=== PATIENT | male | born 1995 | race Caucasian/White ===

== ENCOUNTER 2017-09-07 21:57 | Emergency (ER) | payer BC ==
[2017-09-07 22:40] LABS: BASOPHILS 0.3 % (0-2); EOSINOPHILS 1.2 % (0-7); HEMATOCRIT 43.8 % (42.0-54.0); HEMOGLOBIN 15.2 g/dL (13.5-17.5); IMMATURE GRANULOCYTES 0.2 % (0-5); LYMPHOCYTES 42.5 % (15-50); MCH 32.5 pg (26.0-34.0); MCHC 34.7 g/dL (31.0-37.0); MCV 93.6 fL (80.0-100.0); MEAN PLATELET VOLUME 11.7 fL (7.4-10.4); MONOCYTES 6.2 % (2-11); NEUTROPHILS 49.6 % (40-80); PLATELET COUNT 183 10x3/uL (130-400); RBC 4.68 10x6/uL (4.20-6.10); RDW 12.6 % (11.5-14.5); WBC 8.6 10x3/uL (4.8-10.8)
[2017-09-07 22:57] LABS: ALBUMIN 3.9 g/dL (3.4-5.0); ALKALINE PHOSPHATASE 77 U/L (46-116); ALT (SGPT) 35 U/L (10-68); BILIRUBIN - TOTAL 0.22 mg/dL (0.2-1.3); CALC OSMOLALITY 280 mosm/kg (275-300); CALCIUM 8.8 mg/dL (8.5-10.1); CARBON DIOXIDE 27.1 mmol/L (21.0-32.0); CHLORIDE - SERUM 104 mmol/L (98-107); GLUCOSE 88 mg/dL (74-106); POTASSIUM - SERUM 4.3 mmol/L (3.5-5.1); PROTEIN - SERUM 7.5 g/dL (6.4-8.2); SODIUM 141 mmol/L (136-145); UREA NITROGEN 14 mg/dL (7-18); eGFR NON AFRICAN AMERICAN > 90 mL/min (90-120)
[2017-09-07 22:59] LABS: CREATINE KINASE 154 UL (21-232); TROPONIN-I < 0.017 ng/mL (0.000-0.060)
== END 2017-09-08 00:03 | disposition home or self-care (01) ==
LOC: D.ER 21:57
PROVIDERS: Nurse Practitioner Family
DX: R09.1 Pleurisy (principal); J20.9 Acute bronchitis, unspecified; F17.200 Nicotine dependence, unspecified, uncomplicated

== ENCOUNTER 2017-10-17 15:32 | Emergency (ER) | payer MEDICAID ==
[~2017-10-17] VITALS: Ht 175.3 cm; Wt 104.5 kg
[2017-10-17 15:50] VITALS: Ht 175.3 cm; Wt 104.5 kg
[2017-10-17 18:35] LABS: ALKALINE PHOSPHATASE 79 U/L (46-116); ALT (SGPT) 38 U/L (10-68); BILIRUBIN - TOTAL 0.47 mg/dL (0.2-1.3); CALC OSMOLALITY 278 mosm/kg (275-300); CALCIUM 8.9 mg/dL (8.5-10.1); CARBON DIOXIDE 28.4 mmol/L (21.0-32.0); CHLORIDE - SERUM 102 mmol/L (98-107); GLUCOSE 86 mg/dL (74-106); POTASSIUM - SERUM 3.5 mmol/L (3.5-5.1); PROTEIN - SERUM 7.7 g/dL (6.4-8.2); SODIUM 141 mmol/L (136-145); UREA NITROGEN 11 mg/dL (7-18); eGFR NON AFRICAN AMERICAN > 90 mL/min (90-120)
[2017-10-17 18:47] LABS: CKMB 0.5 U/L (0.0-3.6); CREATINE KINASE 127 UL (21-232); TROPONIN-I < 0.017 ng/mL (0.000-0.060)
[2017-10-17 18:53] LABS: BASOPHILS 0.5 % (0-2); HEMATOCRIT 46.2 % (42.0-54.0); HEMOGLOBIN 15.9 g/dL (13.5-17.5); IMMATURE GRANULOCYTES 0.1 % (0-5); LYMPHOCYTES 37.9 % (15-50); MCH 32.1 pg (26.0-34.0); MCHC 34.4 g/dL (31.0-37.0); MCV 93.1 fL (80.0-100.0); MEAN PLATELET VOLUME 11.8 fL (7.4-10.4); MONOCYTES 6.2 % (2-11); NEUTROPHILS 54.3 % (40-80); PLATELET COUNT 180 10x3/uL (130-400); RBC 4.96 10x6/uL (4.20-6.10); RDW 12.3 % (11.5-14.5); WBC 7.9 10x3/uL (4.8-10.8)
[2017-10-17 20:19] LABS: APPEARANCE CLEAR (CLEAR); COLOR YELLOW (YELLOW)
[2017-10-17 20:20] LABS: BILIRUBIN NEGATIVE (NEGATIVE); GLUCOSE NEGATIVE (NEGATIVE); KETONE NEGATIVE (NEGATIVE); NITRITE NEGATIVE (NEGATIVE); PROTEIN NEGATIVE (NEGATIVE); UROBILINOGEN NORMAL (NORMAL)
[2017-10-17] MEDS ORDERED: VISTARIL25 MG PO (20:46)
[2017-10-17 22:04] VITALS: BP 123/76
== END 2017-10-17 21:15 | disposition home or self-care (01) ==
LOC: D.ER 15:32
PROVIDERS: Family Medicine
DX: T67.5XXA Heat exhaustion, unspecified, initial encounter (principal); X58.XXXA Exposure to other specified factors, initial encounter; Y93.89 Activity, other specified; Y92.89 Other specified places as the place of occurrence of the external cause; J45.909 Unspecified asthma, uncomplicated; F17.200 Nicotine dependence, unspecified, uncomplicated

== ENCOUNTER 2017-12-28 11:38 | Emergency (ER) | payer MEDICAID ==
[~2017-12-28] VITALS: Ht 175.3 cm; Wt 109.1 kg
[~2017-12-28 11:38] MED LIST: VISTARIL25 MG PO
[2017-12-28 11:43] VITALS: Ht 175.3 cm; Wt 109.1 kg
[2017-12-28 12:09] LABS: BASOPHILS 0.2 % (0-2); EOSINOPHILS 0.6 % (0-7); HEMATOCRIT 47.7 % (42.0-54.0); HEMOGLOBIN 16.6 g/dL (13.5-17.5); IMMATURE GRANULOCYTES 0.2 % (0-5); LYMPHOCYTES 18.1 % (15-50); MCH 32.3 pg (26.0-34.0); MCHC 34.8 g/dL (31.0-37.0); MCV 92.8 fL (80.0-100.0); MEAN PLATELET VOLUME 12.2 fL (7.4-10.4); MONOCYTES 5.6 % (2-11); NEUTROPHILS 75.3 % (40-80); PLATELET COUNT 183 10x3/uL (130-400); RBC 5.14 10x6/uL (4.20-6.10); RDW 12.5 % (11.5-14.5); WBC 12.9 10x3/uL (4.8-10.8)
[2017-12-28 12:27] LABS: ALBUMIN 4.2 g/dL (3.4-5.0); ALKALINE PHOSPHATASE 78 U/L (46-116); ALT (SGPT) 31 U/L (10-68); BILIRUBIN - TOTAL 0.39 mg/dL (0.2-1.3); CALC OSMOLALITY 277 mosm/kg (275-300); CALCIUM 8.5 mg/dL (8.5-10.1); CARBON DIOXIDE 28.4 mmol/L (21.0-32.0); CHLORIDE - SERUM 104 mmol/L (98-107); CREATININE - SERUM 1.1 mg/dL (0.6-1.3); GLUCOSE 96 mg/dL (74-106); PROTEIN - SERUM 7.7 g/dL (6.4-8.2); SODIUM 140 mmol/L (136-145); UREA NITROGEN 11 mg/dL (7-18); eGFR NON AFRICAN AMERICAN 90 mL/min (90-120)
[2017-12-28] MEDS ORDERED: ZOFRAN ODT4 MG/UDTAB PO (12:29)
[2017-12-28 13:27] VITALS: BP 132/78
== END 2017-12-28 13:28 | disposition home or self-care (01) ==
LOC: D.ER 11:38
PROVIDERS: Emergency Medicine
DX: R11.10 Vomiting, unspecified (principal); R10.9 Unspecified abdominal pain; F17.200 Nicotine dependence, unspecified, uncomplicated

== ENCOUNTER 2018-05-22 10:07 | Emergency (ER) | payer MEDICAID ==
[~2018-05-22] VITALS: Ht 175.3 cm; Wt 106.8 kg
[~2018-05-22 10:07] MED LIST changes: +ZOFRAN ODT4 MG/UDTAB PO
[2018-05-22 10:17] VITALS: BP 108/59; Ht 175.3 cm; Wt 106.8 kg
== END 2018-05-22 11:52 | disposition left against medical advice (07) ==
LOC: D.ER 10:07
DX: R10.9 Unspecified abdominal pain (principal)

== ENCOUNTER 2018-05-24 11:45 | Emergency (ER) | payer MEDICAID ==
[~2018-05-24] VITALS: Ht 175.3 cm; Wt 106.8 kg
[2018-05-24 11:54] VITALS: Ht 175.3 cm; Wt 106.8 kg
[2018-05-24 12:34] LABS: BASOPHILS 0.4 % (0-2); HEMATOCRIT 46.2 % (42.0-54.0); HEMOGLOBIN 15.9 g/dL (13.5-17.5); IMMATURE GRANULOCYTES 0.3 % (0-5); MCH 32.3 pg (26.0-34.0); MCHC 34.4 g/dL (31.0-37.0); MCV 93.9 fL (80.0-100.0); MEAN PLATELET VOLUME 11.9 fL (7.4-10.4); MONOCYTES 6.3 % (2-11); PLATELET COUNT 168 10x3/uL (130-400); RBC 4.92 10x6/uL (4.20-6.10); RDW 12.4 % (11.5-14.5)
[2018-05-24 12:55] LABS: ALBUMIN 3.9 g/dL (3.4-5.0); ALKALINE PHOSPHATASE 72 U/L (46-116); ALT (SGPT) 48 U/L (10-68); BILIRUBIN - TOTAL 0.27 mg/dL (0.2-1.3); CALC OSMOLALITY 277 mosm/kg (275-300); CALCIUM 8.6 mg/dL (8.5-10.1); CARBON DIOXIDE 31.7 mmol/L (21.0-32.0); CHLORIDE - SERUM 103 mmol/L (98-107); GLUCOSE 93 mg/dL (74-106); POTASSIUM - SERUM 3.9 mmol/L (3.5-5.1); PROTEIN - SERUM 7.6 g/dL (6.4-8.2); SODIUM 139 mmol/L (136-145); UREA NITROGEN 13 mg/dL (7-18); eGFR NON AFRICAN AMERICAN > 90 mL/min (90-120)
[2018-05-24] MEDS ORDERED: EC-NAPROSYN500 MG PO (14:18)
[2018-05-24 14:36] VITALS: BP 104/72
== END 2018-05-24 14:38 | disposition home or self-care (01) ==
LOC: D.ER 11:45
PROVIDERS: Emergency Medicine
DX: G89.18 Other acute postprocedural pain (principal); Z98.890 Other specified postprocedural states

== ENCOUNTER 2018-06-26 07:05 | Day surgery (SDC) | payer MEDICAID ==
[2018-06-25 11:25] LABS: CALC OSMOLALITY 283 mosm/kg (275-300); CALCIUM 8.7 mg/dL (8.5-10.1); CARBON DIOXIDE 28.9 mmol/L (21.0-32.0); CHLORIDE - SERUM 104 mmol/L (98-107); GLUCOSE 93 mg/dL (74-106); POTASSIUM - SERUM 3.9 mmol/L (3.5-5.1); SODIUM 143 mmol/L (136-145); UREA NITROGEN 10 mg/dL (7-18); eGFR NON AFRICAN AMERICAN > 90 mL/min (90-120)
[2018-06-25 12:29] LABS: BASOPHILS 0.5 % (0-2); HEMOGLOBIN 15.5 g/dL (13.5-17.5); IMMATURE GRANULOCYTES 0.1 % (0-5); LYMPHOCYTES 40.9 % (15-50); MCH 31.9 pg (26.0-34.0); MCHC 34.4 g/dL (31.0-37.0); MCV 92.6 fL (80.0-100.0); MEAN PLATELET VOLUME 12.9 fL (7.4-10.4); MONOCYTES 7.2 % (2-11); NEUTROPHILS 50.3 % (40-80); PLATELET COUNT 168 10x3/uL (130-400); RBC 4.86 10x6/uL (4.20-6.10); RDW 12.6 % (11.5-14.5)
[~2018-06-26] VITALS: Ht 175.3 cm; Wt 107.5 kg
[~2018-06-26 07:05] MED LIST changes: +EC-NAPROSYN500 MG PO; +KLONOPIN1 MG PO
[2018-06-26 08:06] VITALS: BP 91/50; Ht 175.3 cm; Wt 107.5 kg
[2018-06-26] MEDS ORDERED: HYDROCODON-ACE1 EA10 PO (10:17)
--- NOTE | 2018-07-09 09:41 | OP ---
PATIENT NAME: CHRISTINE ROBLES MEDICAL RECORD: [id number] :89 LOCATION:[facility] ADMISSION DATE: SURGEON: LEONARDO RINALDI MD DATE OF OPERATION: 06/26/2018 PREOPERATIVE DIAGNOSIS: Mixed internal and external hemorrhoids. POSTOPERATIVE DIAGNOSIS: Mixed internal and external hemorrhoids. PROCEDURE: PPH stapled hemorrhoidectomy. SURGEON: Leonardo Rinaldi MD REPORT OF PROCEDURE: The patient was placed in the jackknife prone position and the perianal region was prepped and draped in sterile fashion. An anoscope was used to do a 360-degree inspection of the patient's anus. I did not see any evidence of any fissures or fistulas. The patient did have large mixed internal and external hemorrhoids with the largest of these being on the left posterior to the lateral aspect. A PPH anoscope was then inserted and sutured down on all sides using interrupted 3-0 silks. A 2-0 Prolene was used to make a pursestring about 3 cm from the dentate line. The stapler was then inserted and a good ring of tissue was removed after the stapler was fired. The staple line was inspected and there was no sign of any bleeding. We irrigated out the wound and assured one last time, there was no sign of any bleeding and the staple line did appear to be intact. The anoscope was then removed. A piece of Gelfoam dipped in Americaine was placed into the anus and the anus was dressed appropriately. COMPLICATIONS: None. CONDITION: Stable. ANESTHESIA: General endotracheal. BLOOD LOSS: Minimal. TRANSINT:[id number] Voice Confirmation ID: [id number] DOCUMENT ID: [id number] LEONARDO RINALDI MD at 0941 CC: AYESHA OSMAN [id number] DICTATION DATE: 06/26/18 1020 PICKER / PACKER: 06/26/18 1121 [facility] 06/26/[address] [address]
== END 2018-06-26 12:45 | disposition home or self-care (01) ==
LOC: D.OPS 07:05 → D.PAN 09:00 → D.OPS 12:45
PROVIDERS: Surgery
DX: K64.8 Other hemorrhoids (principal); K64.4 Residual hemorrhoidal skin tags

== ENCOUNTER 2018-08-04 05:26 | Day surgery (SDC) | payer MEDICAID ==
[~2018-08-04] VITALS: Ht 175.3 cm; Wt 108.0 kg
--- NOTE | ~2018-08-04 | OP ---
PATIENT NAME: CHRISTINE ROBLES MEDICAL RECORD: [id number] :89 LOCATION:[facility] ADMISSION DATE: SURGEON: LEONARDO RINALDI MD DATE OF OPERATION: 08/04/2018 PREOPERATIVE DIAGNOSIS: Back sebaceous cyst times 2. POSTOPERATIVE DIAGNOSIS: Back sebaceous cyst times 2. PROCEDURE: Excision of back sebaceous cyst times 2 (3 cm and 1 cm). SURGEON: Leonardo Rinaldi MD REPORT OF PROCEDURE: The patient was placed in the right lateral decubitus position and the back was prepped and draped in sterile fashion. On the upper back just over top of the superior ridge of the scapula, there was a large firm mass about 3 cm in diameter. This had an old scar present. This scar was in oblique fashion. I went ahead and deepa out an ovoid incision and using a 15 blade, I was able to open up this ovoid incision overlying the mass. Electrocautery was used to dissect through the subcutaneous tissues and we gently came around this large mass of tissue. We did penetrate the mass couple of times. There was some spillage of sebum consistent with a sebaceous cyst. We eventually were able to get the entire sebaceous cyst out all the way down to normal appearing fatty tissue on all sides. This did not penetrate through the fascia. At the conclusion of this, we measured out the cyst and it was 3 cm in greatest diameter. The wound was inspected and any bleeding that was found was treated with electrocautery. We then went to the smaller cyst, which was just medial to this closer to the midline and this was about 1 cm in size. An ovoid incision 1 cm in length was made overlying this mass and using electrocautery, we came down through the surrounding subcutaneous tissues and completely excised this lesion. We never penetrated the lesion during this portion of the procedure. The wound was inspected and any bleeding was treated with electrocautery. We then irrigated out both wounds with peroxide and saline solution. The subcutaneous tissues were reapproximated with interrupted 3-0 Vicryl and then infused with 10 mL of 0.25% Marcaine with epinephrine. The skin incisions were both closed with subcutaneous running 5-0 Monocryl and dressed appropriately. COMPLICATIONS: None. CONDITION: Stable. ANESTHESIA: General endotracheal and local. BLOOD LOSS: Minimal. TRANSINT:[id number] Voice Confirmation ID: [id number] DOCUMENT ID: [id number] OPERATIVE REPORT [id number] CHRISTINE ROBLES CHRISTIAN MD CC: AYESHA OSMAN [id number] DICTATION DATE: 08/04/18 0857 PHYSICS DEPARTMENT CHAIR: 08/04/18 1146 [facility] 08/04/18 [facility] [address] [place] [address]
[~2018-08-04 05:26] MED LIST changes: +HYDROCODON-ACE1 EA10 PO
[2018-08-04 05:57] LABS: BASOPHILS 0.4 % (0-2); EOSINOPHILS 1.4 % (0-7); HEMATOCRIT 45.2 % (42.0-54.0); HEMOGLOBIN 15.2 g/dL (13.5-17.5); IMMATURE GRANULOCYTES 0.1 % (0-5); MCH 31.7 pg (26.0-34.0); MCHC 33.6 g/dL (31.0-37.0); MCV 94.2 fL (80.0-100.0); MONOCYTES 8.4 % (2-11); NEUTROPHILS 49.7 % (40-80); PLATELET COUNT 167 10x3/uL (130-400); RDW 12.5 % (11.5-14.5)
[2018-08-04 06:07] LABS: CALC OSMOLALITY 284 mosm/kg (275-300); CALCIUM 8.7 mg/dL (8.5-10.1); CARBON DIOXIDE 29.2 mmol/L (21.0-32.0); CHLORIDE - SERUM 105 mmol/L (98-107); GLUCOSE 94 mg/dL (74-106); SODIUM 143 mmol/L (136-145); UREA NITROGEN 12 mg/dL (7-18); eGFR NON AFRICAN AMERICAN > 90 mL/min (90-120)
[2018-08-04 06:39] VITALS: BP 107/70; Ht 175.3 cm; Wt 108.0 kg
[2018-08-04] MEDS ORDERED: HYDROCODON-ACE1 EA10 PO (08:51)
--- NOTE | 2018-08-04 10:24 | NUR ---
1018 1 NORCO 10/325MG PO FOR COMPLAINTS OF THROBBING PAIN @ INCISION, UPPER BACK. SERVED SHERBET & ICE WATER. Carol GIBBONS R.N.
--- NOTE | 2018-08-04 11:01 | NUR ---
1050 DRESSED, AWAKE & ALERT. GIVEN DISCHARGE INFORMATION PACKET INCLUDING: RX: NORCO 10/325MG, MED REC., RTC APPT., [facility] OUTPATIENT D/C INSTRUCTIONS & COMPUTER GENERATED PT EDUCATIONS: EPIDERMAL CYST D/C INSTRUCTIONS. PT VOICED UNDERSTANDING. INSTRUCTED ON FILLING ICE PACK. TO PRIVATE CAR PER WHEELCHAIRBY VOLUNTEER. HOME WITH KEV BUENO. Carol GIBBONS R.N.
== END 2018-08-04 10:50 | disposition home or self-care (01) ==
LOC: D.OPS 05:26
PROVIDERS: ATTEND Surgery
DX: L72.3 Sebaceous cyst (principal); Z01.812 Encounter for preprocedural laboratory examination

== ENCOUNTER → 2018-09-16 10:20 | Outpatient (CLI) | payer MEDICAID ==
[2018-08-04 06:39] VITALS: BMI 35.2
== END | disposition home or self-care (01) ==
LOC: D.US 10:20 → D.NM 11:30
PROVIDERS: ATTEND Internal Medicine Gastroenterology
DX: R11.2 Nausea with vomiting, unspecified (principal); R10.13 Epigastric pain

== ENCOUNTER → 2019-03-24 07:31 | Outpatient (CLI) | payer MEDICAID ==
[2018-08-04 06:39] VITALS: BMI 35.2
[2019-03-24 08:04] LABS: BILIRUBIN - DIRECT 0.1 mg/dL (0.00-0.30); BILIRUBIN - INDIRECT 0.29 mg/dL (0.00-1.00); BILIRUBIN - TOTAL 0.39 mg/dL (0.2-1.3); PROTEIN - SERUM 7.5 g/dL (6.4-8.2)
== END | disposition home or self-care (01) ==
LOC: D.US 07:31
PROVIDERS: ATTEND Internal Medicine Gastroenterology
DX: K76.0 Fatty (change of) liver, not elsewhere classified (principal)

== ENCOUNTER → 2019-04-09 09:41 | Outpatient (CLI) | payer MEDICAID ==
[2018-08-04 06:39] VITALS: BMI 35.2
== END | disposition home or self-care (01) ==
LOC: D.RAD 09:41
PROVIDERS: ATTEND Internal Medicine Gastroenterology
DX: R10.30 Lower abdominal pain, unspecified (principal); K31.84 Gastroparesis; R19.4 Change in bowel habit

== ENCOUNTER 2019-12-02 08:00 | Emergency (ER) | payer MEDICAID ==
[~2019-12-02] VITALS: Ht 175.3 cm; Wt 104.5 kg
[2019-12-02 08:08] VITALS: Ht 175.3 cm; Wt 104.5 kg
[2019-12-02] MEDS ORDERED: LITHIUM CARBON300 MG PO (08:11)
[2019-12-02 08:42] LABS: CALC OSMOLALITY 276 mosm/kg (275-300); CALCIUM 8.6 mg/dL (8.5-10.1); CHLORIDE - SERUM 105 mmol/L (98-107); CREATININE - SERUM 0.9 mg/dL (0.6-1.3); GLUCOSE 107 mg/dL (74-106); POTASSIUM - SERUM 3.9 mmol/L (3.5-5.1); SODIUM 140 mmol/L (136-145); UREA NITROGEN 7 mg/dL (7-18); eGFR NON AFRICAN AMERICAN > 90 mL/min (90-120)
[2019-12-02 08:45] LABS: BASOPHILS 0.3 % (0-2); EOSINOPHILS 1.1 % (0-7); HEMATOCRIT 40.1 % (42.0-54.0); HEMOGLOBIN 13.3 g/dL (13.5-17.5); IMMATURE GRANULOCYTES 1.1 % (0-5); LYMPHOCYTES 29.9 % (15-50); MCH 30.7 pg (26.0-34.0); MCHC 33.2 g/dL (31.0-37.0); MCV 92.6 fL (80.0-100.0); MEAN PLATELET VOLUME 11.2 fL (7.4-10.4); MONOCYTES 6.4 % (2-11); NEUTROPHILS 61.2 % (40-80); RBC 4.33 10x6/uL (4.20-6.10); RDW 12.5 % (11.5-14.5); WBC 7.5 10x3/uL (4.8-10.8)
[2019-12-02 08:50] LABS: ALBUMIN 3.6 g/dL (3.4-5.0); ALKALINE PHOSPHATASE 75 U/L (30-120); ALT (SGPT) 41 U/L (10-68); BILIRUBIN - TOTAL 0.25 mg/dL (0.2-1.3); PROTEIN - SERUM 6.4 g/dL (6.4-8.2)
[2019-12-02 09:05] LABS: PLATELET COUNT 209 10x3/uL (130-400)
[2019-12-02] MEDS ORDERED: NAPROSYN500 MG PO (09:45)
[2019-12-02 10:30] VITALS: BP 109/76
[2019-12-03] MEDS ORDERED: METHOCARBAMOL500 MG PO (19:23)
== END 2019-12-02 10:30 | disposition home or self-care (01) ==
LOC: D.ER 08:00
PROVIDERS: Family Medicine
DX: M25.552 Pain in left hip (principal); M25.551 Pain in right hip; V89.2XXA Person injured in unspecified motor-vehicle accident, traffic, initial encounter; Y93.9 Activity, unspecified; Y92.9 Unspecified place or not applicable; J45.909 Unspecified asthma, uncomplicated; K21.9 Gastro-esophageal reflux disease without esophagitis

== ENCOUNTER 2019-12-03 18:31 | Emergency (ER) | payer MEDICAID ==
[~2019-12-03] VITALS: Ht 172.7 cm; Wt 104.5 kg
[~2019-12-03 18:31] MED LIST changes: +LITHIUM CARBON300 MG PO; +NAPROSYN500 MG PO
[2019-12-03 18:43] VITALS: BP 118/75; Ht 172.7 cm; Wt 104.5 kg
[2019-12-03] MEDS ORDERED: METHOCARBAMOL500 MG PO (19:23)
== END 2019-12-03 19:30 | disposition home or self-care (01) ==
LOC: D.ER 18:31
DX: M54.5 Low back pain (principal); V89.2XXA Person injured in unspecified motor-vehicle accident, traffic, initial encounter; Y93.9 Activity, unspecified; Y92.9 Unspecified place or not applicable; K21.9 Gastro-esophageal reflux disease without esophagitis; J45.909 Unspecified asthma, uncomplicated

== ENCOUNTER 2020-09-17 21:21 | Emergency (ER) | payer MEDICAID ==
[~2020-09-17] VITALS: Ht 172.7 cm; Wt 104.6 kg
[~2020-09-17 21:21] MED LIST changes: +METHOCARBAMOL500 MG PO
[2020-09-17 21:27] VITALS: BP 129/85; Ht 172.7 cm; Wt 104.6 kg
[2020-09-17 22:11] LABS: INFLUENZA TYPE A NEGATIVE (NEGATIVE); INFLUENZA TYPE B NEGATIVE (NEGATIVE)
[2020-09-17 22:12] LABS: SARS-CoV-2 ANTIGEN POSITIVE- SARS-COV-2 (NEGATIVE)
== END 2020-09-17 22:21 | disposition home or self-care (01) ==
LOC: D.ER 21:21
PROVIDERS: Student in an Organized Health Care Education/Training Program
DX: U07.1 COVID-19 (principal); R06.02 Shortness of breath; J45.909 Unspecified asthma, uncomplicated